=== PATIENT | male | born 1950 | race Caucasian/White ===

== ENCOUNTER 2024-09-09 07:05 | Outpatient (REF) | payer OTHER, SELFPAY ==
[2024-09-09 07:39] LABS: Appearance Urine Clear (Clear); Bilirubin Urine Negative (Negative); Blood Urine 2+ (Negative); Color Urine Yellow (Yellow); Glucose Urine Negative (Negative); Ketones Urine Negative (Negative); Leukocyte Esterase Urine 1+ (Negative); Nitrite Urine Positive (Negative); Protein Urine 2+ (Negative); Specific Gravity Urine >= 1.030 (1.000-1.030); Urobilinogen Urine 0.2 (0.2-1.0); pH Urine 5.5 (5.0-8.5)
[2024-09-09 07:45] LABS: Basophils Absolute Auto 0.01 K/uL (0.00-0.30); Basophils Percent Auto 0.1 % (0.0-3.0); Eosinophils Percent Auto 1.4 % (0.0-7.0); Hematocrit 38.7 % (37.0-53.0); Hemoglobin* 12.8 gm/dL (13.5-17.5); Immature Granulocytes Abs Auto 0.01 K/uL (0.00-0.30); Immature Granulocytes Pct Auto 0.1 %; Lymphocytes Absolute Auto 1.56 K/uL (0.90-2.90); Lymphocytes Percent Auto 21.4 % (20-44); Mean Corpuscular HGB Conc 33 gm/dL (32-36); Mean Corpuscular Hemoglobin 30 pg (26-34); Mean Corpuscular Volume 90 fL (80-100); Monocytes Percent Auto 7.5 % (0.0-11.0); Neutrophils Absolute Auto 5.07 K/uL (1.7-7.0); Neutrophils Percent Auto 69.5 % (42.0-72.0); Platelet Count* 249 K/uL (140-440); RDW Coefficient of Variation % 13.4 % (11.5-15.5)
[2024-09-09 07:47] LABS: Slide Review Reflex No
[2024-09-09 07:53] LABS: Amorphous Sediment Urine Moderate; Bacteria Urine Few; Squamous Epithelial Cell Urine Few (None-Few)
[2024-09-09 07:54] LABS: Albumin* 4.4 g/dL (3.3-5.0); Chloride* 105 mmol/L (96-114)
[2024-09-09 07:55] LABS: Potassium* 4.2 mmol/L (3.6-5.1); Sodium* 139 mmol/L (135-149)
[2024-09-09 07:57] LABS: Anion Gap 10 mEq/L (7-15); Bilirubin Total* 0.7 mg/dL (0.1-1.5); Carbon Dioxide* 24 mmol/L (20-32); Creatinine* 1.1 mg/dL (0.5-1.5); Estimated Glomerular Filt Rate 70 ml/min
[2024-09-09 07:58] LABS: Alanine Aminotransferase* 16 U/L (4-50); Alkaline Phosphatase* 102 U/L (40-150); Aspartate Amino Transferase* 20 U/L (12-35); Blood Urea Nitrogen* 25 mg/dL (7-30); Calcium* 9.3 mg/dL (8.4-10.6); Glucose* 127 mg/dL (60-115); Total Protein* 7.5 g/dL (6.0-8.3)
[2024-09-09] MEDS: PERFLUTREN LIPID MICROSPHERES 2 ML VIAL IVP (08:45)
== END 2024-09-09 07:06 | disposition home or self-care (01) ==
LOC: RAD 07:05
PROVIDERS: Visit Provider Chiropractor
DX: I50.32 Chronic diastolic (congestive) heart failure (principal); A41.9 Sepsis, unspecified organism
CPT/HCPCS: 36415; 80053; 81001; 81003; 85025; 87086; 93306; Q9957